=== PATIENT | female | born 1975 | race Two or more races ===

== ENCOUNTER → 2017-09-13 | Outpatient (CLI) | payer OTHER ==
[~2017-09-13] VITALS: Ht 160 cm; Wt 73.5 kg
[~2017-09-13] MED LIST: CEPH-264 PO; MULTIVIT PO; PHEN30CA3 PO
[2017-09-13 08:41] VITALS: BP 114/66
--- NOTE | 2017-09-13 11:12 | RAD ---
Ultrasound-guided core biopsy of the left breast Indications: Left breast mass with skin discoloration and dimpling. History of recent incision and drainage of left breast infection bilaterally. Procedure: There is diffuse palpable firmness of the upper aspect of the left breast along with skin redness and dimpling. Sonography of the left breast was performed which demonstrates a large irregular hypoechoic infiltrative mass at the 11 and 12:00 position. The procedure and possible complications including bleeding and infection were explained. The patient provided both verbal and written consent. An appropriate skin jessica was made on the left breast using ultrasound guidance. A timeout was performed which confirmed the name of the patient and date of and the type of procedure and the side of the procedure. Allergies to medications were reviewed. The patient's questions were answered. The left breast was prepped and draped in the usual sterile fashion. A total of 4 cc of 1% lidocaine was utilized for local anesthesia. Using sterile technique and ultrasound guidance, a small skin neck was made and a 13-gauge Bard needle cannula was directed to the edge of the nodule. A total of 5 14-gauge core biopsies were obtained coaxially through the needle cannula using ultrasound guidance. Sonographic spot images were obtained. Following this, a breast biopsy marker clip was placed coaxially in the periphery of the infiltrative process using ultrasound guidance. A sonographic spot image was performed. Manual pressure was applied for 5 minutes and hemostasis was deemed adequate. Sterile Band-Aid was applied to the biopsy site. The patient tolerated the procedure well without complication. The biopsy samples were placed into formalin and sent to pathology for further evaluation. Follow-up will be with the patient's referring physician. IMPRESSION: Ultrasound-guided core biopsy sampling of the nodule of the left breast was performed without complication. Pathology results pending. DIAGNOSTIC LEFT-SIDED MAMMOGRAPHY Findings: Digital CC and MLO mammographic views of the left breast were performed. There is a diffuse dense infiltrative process of the upper aspect of the left breast with skin thickening. Biopsy clip is located at the 12:00 position of this infiltrative process. IMPRESSION: Diffuse infiltrative process of the upper aspect of the left breast with skin thickening consistent with inflammatory breast carcinoma left breast. Ultrasound-guided core biopsy was performed today and a biopsy marker was placed into the 12:00 position of the infiltrative process.
--- NOTE | 2017-09-14 14:51 | PATHOLOGY ---
PATHOLOGY REPORT * * * * * * * * FINAL DIAGNOSIS: Breast "breast lump, needle biopsies": - Acute abscess arising in a background of acute and chronic inflammation. COMMENT: This case is also reviewed by Dr. Jennifer Holden. (SHA:pit; 09/14/2017) REPORT ELECTRONICALLY SIGNED BY: Luis Coleman M.D. DATE/TIME: 09/14/2017 14:50 * * * * * * * * GROSS PATHOLOGY: Received in formalin labeled "Angeline Washington, left breast lump" and consists of 8 firm, camargo, translucent, and yellow orange tissue cores ranging in size from 0.3 x 0.1 cm to 1.2 x 0.2 cm. The cold ischemic time is 5 minutes. The formalin fixation time is approximately 10 hours. The specimen is totally submitted as A1. (WARD:09/13/2017) INITIAL CPT CODE(S): A; 52646 Professional services performed [place] [address] Technical services performed by [facility] at [address] [place] [address]. SPECIMEN(S) RECEIVED: A.Left breast lump CLINICAL HISTORY: Left breast lump PATIENT: ANGELINE WASHINGTON /AGE: 503/19/1975 (Age: 42) PATIENT #: [id number] ALT CASE #: SPECIMEN COLLECTION DATE: 09/13/2017 SPECIMEN RECEIVED DATE: 09/13/2017 [facility] - [address] [place] [address] - PHONE: [phone] * * * END OF REPORT * * *
== END | disposition home or self-care (01) ==
LOC: US 15:41
PROVIDERS: ATTEND Surgery
DX: N63.20 Unspecified lump in the left breast, unspecified quadrant (principal)
CPT/HCPCS: 19081; 76942; 88305; C1713; G0206; 77065

== ENCOUNTER 2017-09-30 20:33 | Emergency (ER) | payer SELFPAY ==
[~2017-09-30] VITALS: Ht 160 cm; Wt 72.6 kg
[2017-09-30 21:00] VITALS: BP 128/75
--- NOTE | 2017-09-30 21:23 | PHYS DOC ---
Past Medical History Past Medical History: No Pertinent History Past Surgical History: No Surgical History Alcohol Use: None Drug Use: None Adult General Chief Complaint Chief Complaint: BREAST PROBLEM HPI HPI Patient is a 42 year old female who presents with left breast pain. The patient has several week history of left breast mass and erythema, now status post incision and drainage of breast abscess as well as mammogram and biopsy. She has been followed by Dr. Taylor & has completed a course of Keflex. Today she noticed formation of a new blister with some serosanguineous drainage. Overall she feels that the swelling, pain, and erythema has improved greatly. She denies fevers or chills, vomiting, purulent drainage. She is scheduled to follow-up in the surgery clinic with Dr. Taylor in 3 days. Today she called ask a nurse and was told she needed to come here for another antibiotic prescription. Review of Systems Review of Systems Constitutional: Denies fever or chills HENT: Denies nasal congestion or sore throat Respiratory: Denies cough or shortness of breath Cardiovascular: Denies chest pain Chest: Reports breast pain GI: Denies abdominal pain, nausea, vomiting Musculoskeletal: Denies back pain or joint pain Integument: Denies rash Neurologic: Denies headache All other systems were reviewed and found to be within normal limits, except as documented in this note. Allergies Allergies Allergies Coded Allergies Type Severity Reaction Last Updated Verified No Known Drug Allergies 09/13/17 No Physical Exam Physical Exam Constitutional: Well developed, well nourished, no acute distress, non-toxic appearance. HENT: Normocephalic, atraumatic, bilateral external ears normal, oropharynx moist, nose normal. Eyes: conjunctiva normal, no discharge. Cardiovascular: no edema. Lungs & Thorax: no respiratory distress. left breast with large firm mass at 12:00 position with minimal overlying erythema, well healing surgical incision at 3:00 position without purulent drainage, erythema/warmth/swelling, covered with dry gauze. also at 12:00 position there is biopsy incision also without purulent drainage, erythema/warmth/swelling, covered with steri strips. there is slight skin breakdown at 9:00 position with very tiny amount of serosanguinous drainage, no purulent drainage, no fluctuance or induration. Abdomen: nondistended. Skin: skin changes to left breast as above Extremities: No deformity Neurologic: Alert and oriented X 3 Current Patient Data Vital Signs Vital Signs Date Time Temp Pulse Resp B/P (MAP) Pulse Ox O2 Delivery O2 Flow Rate FiO2 09/30/17 21:00 98.3 99 20 128/75 (92) 99 Room Air 98.3 EKG EKG [] Radiology/Procedures Radiology/Procedures reviewed previous imaging from patient's chart: PROCEDURE: DIGITAL DIAGNOSTIC LT; GUID NDL PLACE/ASPI/BX ADDENDUM The biopsy result came back as acute and chronic inflammation and abscess without malignancy.~ Discussed this result with Dr. Bairon Taylor on Sep 25, 2017. He is concerned as am I that inflammatory breast carcinoma may be still be present given the clinical findings. He said that he is putting her on antibiotics and is going to continue to watch her closely. So tentatively, the BIRADS category remains~ a BIRADS category 5. DICTATED AND SIGNED BY: ASHKAN MANTILLA MD DATE: 09/25/17 1328 CC: NO PCP; BAIRON TAYLOR MD ~ Ultrasound-guided core biopsy of the left breast Indications: Left breast mass with skin discoloration and dimpling. History of recent incision and drainage of left breast infection bilaterally. Procedure: There is diffuse palpable firmness of the upper aspect of the left breast along with skin redness and dimpling. Sonography of the left breast was performed which demonstrates a large irregular hypoechoic infiltrative mass at the 11 and 12:00 position. The procedure and possible complications including bleeding and infection were explained. The patient provided both verbal and written consent. An appropriate skin jessica was made on the left breast using ultrasound guidance. A timeout was performed which confirmed the name of the patient and date of and the type of procedure and the side of the procedure. Allergies to medications were reviewed. The patient's questions were answered. The left breast was prepped and draped in the usual sterile fashion. A total of 4 cc of 1% lidocaine was utilized for local anesthesia. Using sterile technique and ultrasound guidance, a small skin neck was made and a 13-gauge Bard needle cannula was directed to the edge of the nodule. A total of 5 14-gauge core biopsies were obtained coaxially through the needle cannula using ultrasound guidance. Sonographic spot images were obtained. Following this, a breast biopsy marker clip was placed coaxially in the periphery of the infiltrative process using ultrasound guidance. A sonographic spot image was performed. Manual pressure was applied for 5 minutes and hemostasis was deemed adequate. Sterile Band-Aid was applied to the biopsy site. The patient tolerated the procedure well without complication. The biopsy samples were placed into formalin and sent to pathology for further evaluation. Follow-up will be with the patient's referring physician. IMPRESSION: Ultrasound-guided core biopsy sampling of the nodule of the left breast was performed without complication. Pathology results pending. DIAGNOSTIC LEFT-SIDED MAMMOGRAPHY Findings: Digital CC and MLO mammographic views of the left breast were performed. There is a diffuse dense infiltrative process of the upper aspect of the left breast with skin thickening. Biopsy clip is located at the 12:00 position of this infiltrative process. IMPRESSION: Diffuse infiltrative process of the upper aspect of the left breast with skin thickening consistent with inflammatory breast carcinoma left breast. Ultrasound-guided core biopsy was performed today and a biopsy marker was placed into the 12:00 position of the infiltrative process. DICTATED and SIGNED BY: ASHKAN MANTILLA MD DATE: 09/13/17 1059[] Course & Med Decision Making Course & Med Decision Making Pertinent Labs and Imaging studies reviewed. (See chart for details) The patient presents with concerns related to left breast blistering & drainage. There is still some erythema & mass present, but overall patient feels that it is improving & I do not see any sign of acute infection. Initially I misunderstood the patient & thought that she had been directed here by the corporate consultant surgeon for additional antibiotics, but Dr. Perez corporate consultant had had no interaction with the patient, recommends no antibiotics for now, call surgery clinic in the AM. Patient clarified that ask a nurse hotline had given this direction. I recommended continued wound care, call Dr. Taylor's clinic in the AM. Come back for high fever, uncontrolled vomiting, spreading erythema/ warmth/swelling, new purulent drainage, any otherwise worsening condition. Discharged home in stable condition. [] Dragon Disclaimer Dragon Disclaimer This electronic medical record was generated, in whole or in part, using a voice recognition dictation system. Departure Departure Impression: Primary Impression: Breast pain Disposition: HOME, SELF-CARE Condition: STABLE Referrals: NO PCP (PCP) BAIRON TAYLOR MD Patient Instructions: Incision and Drainage, Care After Additional Instructions: You seen in the emergency department today for breast problems. We discussed with the corporate consultant surgeon and no additional antibiotics are recommended at this time. Please continue caring for the incision as directed by Dr. Taylor. Please call the surgery clinic tomorrow morning and make sure they are aware that you were seen in the emergency department today. They may be able to schedule an earlier appointment or give recommendations from Dr. Taylor. Come back for high fever, spreading redness/swelling/warmth, any otherwise worsening condition. DEEPTI OLIVER MD Sep 30, 2017 21:23
== END 2017-09-30 21:30 | disposition home or self-care (01) ==
LOC: ER 20:33
DX: N64.4 Mastodynia (principal)
CPT/HCPCS: 99281

== ENCOUNTER 2017-10-18 10:31 | Day surgery (SDC) | payer OTHER ==
[~2017-10-18 10:31] MED LIST changes: -CEPH-264 PO; +HYDROmorphone 2 MG/ML VIAL IV; +LIDOCAINE 1% PF 2 ML VIAL. ID; +LIDOCAINE 2% PF Vial for OR 5 ML VIAL.; +MORPHINE SULFATE 2 MG/ML DISP.SYRIN. IV; -MULTIVIT PO; +ONDANSETRON PF 4 MG/2 ML VIAL.; +ONDANSETRON PF 4 MG/2 ML VIAL. IV; -PHEN30CA3 PO; +PROCHLORPERAZINE 10 MG/2 ML VIAL. IV; +PROPOFOL 20 ML IV; +ceFAZolin 2GM PREMIX 2 GM/50 ML BAG IV; +fentaNYL PF VIAL 100 MCG/2 ML VIAL; +fentaNYL PF VIAL 100 MCG/2 ML VIAL IV
[2017-10-18 11:51] LABS: NEG OBC UR NEG; POS OBC UR POS
[2017-10-18] MEDS: IV RINGERS,LACTATED 1000ML 1,000 ML IV (12:06)
[2017-10-18] MEDS ORDERED: MIDAZOLAM HCL/PF 2 MG/2 ML VIAL. (12:56)
[2017-10-18] MEDS ORDERED: DEXAMETHASONE SOD PHOS 20 MG/5 ML VIAL. (13:20)
[2017-10-18] MEDS ORDERED: SEVOFLURANE 61 TO 120 MINUTES. IH (13:20)
[2017-10-18] MEDS: BUPIVAC MPF-EPI 0.5%-1:200000 30 ML VIAL. (13:31)
[2017-10-18] MEDS ORDERED: fentaNYL PF VIAL 100 MCG/2 ML VIAL (14:11)
[2017-10-18] MEDS: fentaNYL PF VIAL 100 MCG/2 ML VIAL IV ×3 (14:13→14:27)
[2017-10-18] MEDS: oxyCODONE/APAP 5/325 1 TAB TABLET PO (14:50)
== END 2017-10-18 15:38 | disposition home or self-care (01) ==
LOC: SURG 10:31
DX: N60.12 Diffuse cystic mastopathy of left breast (principal)
CPT/HCPCS: 19120; 81025; 87071; 87075; 87205; 88305; C1769; J0690; J1100; J2250; J2405; J2704; J3010; J3490

== ENCOUNTER → 2018-02-07 | Outpatient (CLI) | payer OTHER | END | disposition home or self-care (01) | LOC: US 12:12 | DX: N61.0 Mastitis without abscess (principal) | CPT/HCPCS: 76641 ==